=== PATIENT | male | born 1990 | race Caucasian/White ===

== ENCOUNTER 2024-01-11 10:18 | Emergency (ER) | payer OTHER, SELFPAY ==
[2024-01-11 10:32] VITALS: BP 124/75
--- NOTE | 2024-01-11 12:16 | ED.GENMED ---
History of Present Illness
General
Chief Complaint: Abdominal Pain
Source: patient
Exam Limitations: none
Time Seen by Provider: 01/11/24 11:55
Nursing documentation reviewed up to this point in time: agreed with
History of Present Illness
History of Present Illness:
Patient is a 33-year-old male presenting for evaluation of abdominal pain. Patient report acute onset left lower quadrant abdominal pain on Tuesday mid. He describes it as a constant, stabbing pain. However�she is able to sleep at night and
pain seems little better at night. He denies any association of pain with eating and/or movement. Patient denies any radiation of abdominal pain. Patient denies any associated fever, chills, nausea, vomiting, testicular pain or urinary symptoms.
Patient did have 1 episode of diarrhea yesterday. Patient was seen in urgent care on Tuesday after symptom onset where he had normal lab work. He was instructed to present to the emergency department if pain persisted.
Of note�patient states he was at a water park last weekend where he was going down multiple water slide and is wondering if he possibly pulled a muscle. Patient denies any chest pain, shortness of breath.
Review of Systems
Review of Systems
Allergies reviewed?: Yes
All Other Systems: ROS reviewed and negative except as documented in HPI and ROS
Phy Exam
Physical Exam
Physical Exam:
Vitals: Patient's vital signs are stable. Afebrile
General: Patient is well appearing, no acute distress. Nontoxic-appearing
Skin: Warm and dry, no rashes or lesions
Head: Normocephalic, atraumatic
Eyes: Sclera nonicteric. EOMs intact. No nystagmus.
Throat: Protecting airway
Neck: Normal ROM, no cervical spine tenderness, no meningismus
Cardiac: Regular rate and rhythm, no murmurs.
Pulm: Normal respiratory effort, no wheezes, rales, rhonchi heard on exam.
Abdomen: Abdomen soft. Mild tenderness in left mid abdomen/left lower quadrant without rebound tenderness or guarding. No CVA tenderness
Extremities: No evidence of cyanosis or edema. Great distal pulses
Neuro: AAOx3. CN II-XII intact. No focal neurologic deficits.
Psychiatric: Normal affect.
Course
Orders/Labs/Results
Orders:
Orders
01/11/24 12:14
0.9% Sodium Chloride 1000 ml [Nss] 1,000 ml IV BOLUS
Ketorolac [Toradol] 15 mg IV NOW STA
01/11/24 12:15
CT Abd/Pel (IV only)-[facility] only Urgent
Comment:
Reason For Exam: LLQ abdominal pain, diarrhea
01/11/24 12:23
Complete Blood Count/With Diff Urgent
Comprehensive Metabolic Panel Urgent
Lipase Urgent
01/11/24 12:31
Urinalysis Reflex To Culture Urgent
Date Specimen was Collected: 01/11/24
Time Specimen was Collected: 12:30
01/11/24 15:09
Amoxicillin 875 mg/Clav 125 mg [Augmentin 875 mg/125 mg] 1 tablet PO NOW STA
Abnormal Lab Results
01/11/24
12:23
MCH 32.8 H pg
(27.0-31.0)
MPV 11.0 H fL
(7.4-10.4)
01/11/24 12:23
01/11/24 12:23
Vital Signs
Initial and Last Documented VS:
Initial Vital Signs
Temp Pulse Resp BP Pulse Ox
97.4 F 74 18 124/75 98
01/11/24 10:32 01/11/24 10:32 01/11/24 10:32 01/11/24 10:32 01/11/24 10:32
Last Documented Vital Signs
Temp Pulse Resp BP Pulse Ox
97.4 F 90 16 129/65 99
01/11/24 10:32 01/11/24 15:37 01/11/24 15:37 01/11/24 15:37 01/11/24 15:37
MDM/Problems Addressed
Differential Diagnosis Includes:
Not limited to: Colitis, diverticulitis, UTI, kidney stone, muscle strain, incarcerated hernia
MDM/Problems Addressed:
33-year-old male presenting with few days of left lower quadrant abdominal pain 1 episode of diarrhea. No fever, chills, vomiting. No anorexia. Seen in urgent care a few days ago with normal labs and told to return to the emergency department if
symptoms persisted. Vital signs are stable here, patient is afebrile. Physical above. Patient is extremely well-appearing, in no apparent distress. He does have mild tenderness in the left lower quadrant/left mid abdomen without rebound
tenderness or guarding. Heart regular rate and rhythm. Lungs clear bilaterally. Given persistence of symptoms�will recheck labs, lipase. Will check urinalysis. Will check CT abdomen/pelvis. Fluids, Toradol, Zofran. Will closely monitor and
reassess
Labs noted. No clinically significant abnormalities. There is no leukocytosis. Liver function is normal. Lipase normal. Urinalysis shows no signs of infection. CT pending. Patient does have some improvement following Toradol
CT report reviewed. Findings suggestive of diverticulosis with possible diverticulitis versus epiploic appendagitis versus omental infarct. Given patient presentation and physical exam�my suspicious for acute diverticulitis. Patient is very
well-appearing with no leukocytosis and he is afebrile. Patient appears nontoxic appearing. Will treat patient with Augmentin for suspected acute diverticulitis. First dose was given emergency department today. Return precautions given for
patient. Patient will follow-up with GI doctor for further evaluation/possible colonoscopy once symptoms improved. Findings and return precautions discussed with patient. Discussed case with attending physician.
Chronic conditions affecting care:
N/A
Acute Exacerbation and/or Progression of Chronic Illness:
N/A
*Radiology
Radiology exam reviewed: preliminary read by ED provider and radiology read reviewed
*Pulse Oximetry
Patient hypoxic: no
*EKG
Interpreted by ED Provider?: NA
*Medical Office Rep Interpretation
Rate: Medical Office Rep- N/A
*Critical Care Note
Total Time (30-74mins, 75-104mins- exclusive of procedures): Not Applicable
ED Attending Note
-
Portions of this chart may have been created with voice recognition software.� Occasional wrong word or��sound alike� substitutions may have occurred due to the inherent limitations of voice recognition software.
Discharge Plan
Departure
Patient Disposition: Home (Routine Discharge)
Date of Disposition: 01/11/24
Time of Disposition: 15:04
Patient with high blood pressure during this ER visit?: No
Condition: Good
Covid-19: Not Applicable
Discharge Problem:
Acute diverticulitis
Instructions: Clear Liquid Diet, Diverticulitis (DC)
Prescriptions:
New
amoxicillin-pot clavulanate 875-125 mg tablet
1 tab PO BID 10 Days Qty: 20 0RF
Referrals:
Erika Elkins MD [Family Provider] -
New Wetzel MD [Active] - Next open appointment
Activity Restrictions/Additional Instructions:
RETURN TO THE EMERGENCY DEPARTMENT WITH FEVERS, CHILLS, SEVERE ABDOMINAL PAIN, INTRACTABLE NAUSEA/VOMITING, WORSENING IN CURRENT SYMPTOMS, OR ANY OTHER CONCERNS
-A prescription for an antibiotic has been sent to your pharmacy. You can take this twice per day for the next 10 days. You were given your first dose in the emergency department and can take your first dose at home tomorrow morning. You can take
tylenol/motrin as needed for discomfort.
-You should stay well hydrated. You should adhere to a liquid diet for the next few days and then advance as tolerated.
-Follow-up with GI for further evaluation/management. You may require further imaging.
Interventions
Interventions:
*Risk Screen - Suicide Last Done: 01/11/24 10:34
*General Assessment Last Done: 01/11/24 10:34
*Neglect/Abuse Screening Last Done: 01/11/24 10:34
*Nursing Disposition Last Done: 01/11/24 15:37
[facility] Assessment Last Done: 01/11/24 15:32
Discharge Date and Time
Discharge Date/Time: 01/11/24 15:38
Print Language: SPANISH
[2024-01-11 12:30] VITALS: BP 134/68
[2024-01-11] MEDS: TORADOL 15 MG IV (12:32)
[2024-01-11] MEDS: NSS 1000 IV (12:34)
[2024-01-11 12:44] LABS: % Basophils 0.1 % (0-2); % Eosinophils 0.6 % (0-6); % Immature Granulocytes 0.3 % (0-0.5); % Lymphocytes 26.7 % (20.5-51.1); % Monocytes 8.3 % (1.7-9.3); Absolute Lymphocytes 1.9 10^3/uL (1.2-3.4); Absolute Monocytes 0.6 10^3/uL (0.1-0.6); Absolute Neutrophils 4.5 10^3/uL (1.4-6.5); Hematocrit 45.4 % (39.0-52.0); Hemoglobin 16.2 g/dL (13.0-18.0); Mean Corp Hgb Conc. 35.7 g/dL (33.0-37.0); Mean Corpuscular Hgb 32.8 pg (27.0-31.0); Mean Corpuscular Volume 91.9 fL (80.0-94.0); Nucleated Red Blood Cells % 0 % (-); Platelet Count 233 10^3/uL (130-400); Red Blood Cell Count 4.94 10^6/uL (4.70-6.10); Red Cell Dist. Width 12.3 % (11.5-14.5)
[2024-01-11 12:52] LABS: ALT (SGPT) 46 U/L (0-50); AST (SGOT) 28 U/L (17-59); Albumin 4.7 g/dl (3.5-5.0); Alkaline Phosphatase 92 U/L (38-126); Blood Urea Nitrogen 18 mg/dl (9-20); Calcium 9.6 mg/dl (8.4-10.2); Carbon Dioxide 29 mmol/L (22-30); Chloride 102 mmol/L (98-107); Glucose 86 mg/dl (70-99); Lipase 33 U/L (23-300); Potassium 4.4 mmol/L (3.5-5.1); Sodium 138 mmol/L (135-145); Total Bilirubin 0.6 mg/dl (0.2-1.3); Total Protein 7.6 g/dl (6.3-8.2); eGFR > 60.00
[2024-01-11 14:00] VITALS: BP 127/74
[2024-01-11 14:00] LABS: Urine Albumin Negative (Neg - Trace); Urine Bilirubin Negative (Negative); Urine Character Clear (Clear); Urine Color Yellow; Urine Glucose Negative (Negative); Urine Ketone Negative (Negative); Urine Leukocyte Negative (Negative); Urine Nitrite Negative (Negative); Urine Occult Blood Negative (Negative); Urine Urobilinogen Negative (Neg - 1+)
[2024-01-11] MEDS: AUGMENTIN 875 MG/125 MG 1 TABLET PO (15:23)
[2024-01-11 15:37] VITALS: BP 129/65
== END 2024-01-11 15:38 | disposition home or self-care (01) ==
LOC: EMR 10:18
PROVIDERS: Physician Assistant; EMERGENCY PHYSICIAN Emergency Medicine; FAMILY PHYSICIAN Internal Medicine
DX: K57.92 Diverticulitis of intestine, part unspecified, without perforation or abscess without bleeding (principal)
CPT/HCPCS: 99285; 96361; 96374; 74177; 80053; 81003; 83690; 85025; Q9967